=== PATIENT | male | born 1985 | race Caucasian/White ===

== ENCOUNTER → 2021-10-20 | Outpatient (CLI) | payer BC | LOC: M WHC 10:34 | PROVIDERS: ATTEND Plastic Surgery Surgery of the Hand | DX: N62 Hypertrophy of breast (principal) | CPT/HCPCS: 77066; G0279 ==

== ENCOUNTER → 2024-01-06 | Outpatient (CLI) | payer BC | LOC: M PAIN 13:00 | PROVIDERS: ATTEND Nurse Practitioner Family | DX: M79.18 Myalgia, other site (principal); G89.29 Other chronic pain; Z79.899 Other long term (current) drug therapy; F17.200 Nicotine dependence, unspecified, uncomplicated; Z88.0 Allergy status to penicillin ==

== ENCOUNTER → 2024-02-25 | Outpatient (CLI) | payer BC | LOC: M PAIN 16:00 | PROVIDERS: ATTEND Anesthesiology | DX: M79.18 Myalgia, other site (principal); G89.29 Other chronic pain; F17.200 Nicotine dependence, unspecified, uncomplicated; Z79.899 Other long term (current) drug therapy ==

== ENCOUNTER 2024-04-13 06:29 | Day surgery (SDC) | payer BC, SELFPAY ==
[~2024-04-13] VITALS: Ht 180.3 cm; Wt 108.7 kg
[~2024-04-13 06:29] MED LIST: AMPH1CAP5 PO; ceFAZolin SOD 2 GM in IV 1 EA IV ONE
[2024-04-13] MEDS ORDERED: LR 1,000 ML IV SCH (06:40)
[2024-04-13] MEDS: EPINEPHrine INJ 1 MG/ML 1ML AMP As Ordered ONE (07:12)
[2024-04-13] MEDS: LIDOCAINE 1% MDV 20ML VIAL As Ordered ONE (07:12)
[2024-04-13] MEDS ORDERED: propofoL 200 MG/20 ML VIAL As Ordered ONE (07:25)
[2024-04-13] MEDS ORDERED: dexmedeTOMIDine (4MCG/ML)200MCG/50ML BTL (PRECEDEX) As Ordered ONE (07:25)
[2024-04-13] MEDS ORDERED: fentaNYL 250 MCG/5 ML INJECTION As Ordered ONE (07:25)
[2024-04-13] MEDS ORDERED: ROCURONIUM BROMIDE 50MG/5ML VIAL As Ordered ONE (07:25)
[2024-04-13] MEDS ORDERED: ONDANSETRON 4MG 2ML VIAL As Ordered ONE (07:25)
[2024-04-13] MEDS ORDERED: MIDAZOLAM INJ 2MG/2ML VIAL As Ordered ONE (07:25)
[2024-04-13] MEDS ORDERED: LIDOCAINE 2% 100MG/5ML SDV (FOR ANES.) As Ordered ONE (07:25)
[2024-04-13] MEDS: HEPARIN SOD (PORCINE) 5000UNITS/ML 1ML VIAL/SYRINGE SQ ONE (08:08)
[2024-04-13] MEDS: CIPROFLOXACIN/D5W 400 MG/200 ML BAG As Ordered ONE (08:10)
[2024-04-13] MEDS: CIPROFLOXACIN 400 MG in IV 1 EA IV ONE (08:18)
[2024-04-13] MEDS: GENTAMICIN SULF 80MG/2ML VIAL As Ordered ONE (08:39)
[2024-04-13] MEDS ORDERED: ACETAMINOPHEN 1000MG/100ML IV BAG As Ordered ONE (08:44)
[2024-04-13] MEDS ORDERED: SUGAMMADEX SODIUM 500 MG/5 ML VIAL (BRIDION) As Ordered ONE (09:34)
[2024-04-13] MEDS ORDERED: PHENYLephrine 500MCG 5ML (100MCG/ML) SYRINGE As Ordered ONE (09:41)
[2024-04-13] MEDS ORDERED: fentaNYL 100 MCG/2 ML INJECTION As Ordered ONE (09:55)
[2024-04-13] MEDS ORDERED: ONDANSETRON 4MG 2ML VIAL IV PRN (10:35)
[2024-04-13] MEDS ORDERED: fentaNYL 100 MCG/2 ML INJECTION IV PRN (10:35)
[2024-04-13] MEDS ORDERED: oxyCODONE 5MG TAB PO PRN (10:35)
[2024-04-13] MEDS ORDERED: TRAM50TA2 PO (10:54)
[2024-04-13] MEDS: oxyCODONE 5MG TAB PO PRN (13:28)
[2024-04-13 13:50] VITALS: BP 146/74; TEMP 98.5; O2SAT 100
== END 2024-04-13 14:00 | disposition home or self-care (01) ==
LOC: M SDC 06:29
PROVIDERS: ATTEND Plastic Surgery Surgery of the Hand
DX: N62 Hypertrophy of breast (principal); F17.210 Nicotine dependence, cigarettes, uncomplicated; F90.9 Attention-deficit hyperactivity disorder, unspecified type; Z79.899 Other long term (current) drug therapy; Z88.5 Allergy status to narcotic agent; Z90.89 Acquired absence of other organs; Z88.0 Allergy status to penicillin
CPT/HCPCS: 19300; 88305; C9290; J0131; J0171; J0665; J0744; J1100; J1580; J2250; J2371; J2405; J3010

== ENCOUNTER → 2024-04-25 | Outpatient (CLI) | payer BC ==
[~2024-04-25] MED LIST changes: +TRAM50TA2 PO; -ceFAZolin SOD 2 GM in IV 1 EA IV ONE
== END ==
LOC: M PAIN 14:00
PROVIDERS: ATTEND Nurse Practitioner Family
DX: M79.10 Myalgia, unspecified site (principal); M47.816 Spondylosis without myelopathy or radiculopathy, lumbar region; G89.29 Other chronic pain; F17.200 Nicotine dependence, unspecified, uncomplicated; Z79.899 Other long term (current) drug therapy; Z88.0 Allergy status to penicillin; E66.01 Morbid (severe) obesity due to excess calories; Z68.41 Body mass index [BMI] 40.0-44.9, adult